=== PATIENT | male | born 1955 | race Caucasian/White ===

== ENCOUNTER 2021-02-20 16:52 | Outpatient (CLI) | payer BC, SELFPAY ==
[2021-02-20 17:08] VITALS: BP 112/68; PULSE 98; RESP 16; TEMP 37; O2SAT 98; BMI 27.4
[2021-02-20] MEDS: 0.9% Saline Lock 10 ML Syringe IV (17:23)
[2021-02-20 17:54] VITALS: BP 117/60; PULSE 57; RESP 16; TEMP 37; O2SAT 100
[2021-02-20 18:53] VITALS: BP 121/65; PULSE 61; RESP 16; TEMP 37.1; O2SAT 99
== END 2021-02-20 20:55 | disposition home or self-care (01) ==
LOC: MS3OUT 16:53 → MS3 16:54
PROVIDERS: PCP Family Medicine; Referring Provider Nurse Practitioner Adult Health; Visit Provider Nurse Practitioner Adult Health
DX: U07.1 COVID-19 (principal)
CPT/HCPCS: J7050; M0245; Q0245; A4216

== ENCOUNTER → 2023-08-13 | Outpatient (CLI) | payer OTHER, SELFPAY | END | disposition home or self-care (01) | LOC: SL 19:51 | PROVIDERS: PCP Family Medicine | DX: G47.19 Other hypersomnia (principal); Q23.1 Congenital insufficiency of aortic valve; I71.21 Aneurysm of the ascending aorta, without rupture; I1A.0 Resistant hypertension; E78.2 Mixed hyperlipidemia | CPT/HCPCS: 95810 ==

== ENCOUNTER → 2024-12-30 | Outpatient (CLI) | payer MEDICARE, SELFPAY ==
--- NOTE | 2024-12-30 14:45 | NEURO ---
NCS and/or EMG Patient Report Ordering Doctor: Nereyda Owen DATE OF SERVICE: 12/30/24 Mumtaz presents with complaints of numbness and tingling in both hands, worse on the right side. Electrodiagnostic findings: Right median motor response was not obtainable. Left median motor nerve demonstrates prolonged latency with normal amplitude and reduced conduction velocity. Ulnar motor response within normal limits. Absent right median sensory latency at the wrist. Prolonged left median sensory latency at the wrist. Normal ulnar and radial sensory responses. Needle EMG testing was performed in the upper limbs. All muscles tested showed no evidence of denervation with normal motor unit action potentials. Electrodiagnostic impression: This is an abnormal study in the upper limbs. 1. Electrodiagnostic findings suggestive of bilateral median mononeuropathy. This consistent with a severe right carpal tunnel syndrome and a moderate left carpal tunnel syndrome. 2. No electrodiagnostic evidence is noted for cervical radiculopathy. Multi Select Codes Neurology Neurology Interp Codes: 08837-16 Musc test done w/n test comp (interp) (2) and 76681-07 Nrv cndj test 9-10 studies (interp)
== END | disposition home or self-care (01) ==
LOC: PSN 13:38
PROVIDERS: PCP Student in an Organized Health Care Education/Training Program; Referring Provider Physician Assistant; Visit Provider Physician Assistant
DX: G56.03 Carpal tunnel syndrome, bilateral upper limbs (principal)
CPT/HCPCS: 95886; 95911